=== PATIENT | male | born 1970 | race Caucasian/White ===

== ENCOUNTER 2021-11-01 12:08 | Emergency (ER) | payer OTHER, SELFPAY ==
[2021-11-01 12:09] VITALS: BP 138/101; PULSE 83; RESP 14; TEMP 36.6; O2SAT 98; BMI 27.1
--- NOTE | 2021-11-01 12:24 | EKG12_ITS ---
Test Reason : CP Blood Pressure : / mmHG Vent. Rate : 074 BPM Atrial Rate : 074 BPM P-R Int : 162 ms QRS Dur : 102 ms QT Int : 400 ms P-R-T Axes : 046 021 040 degrees QTc Int : 444 ms Sinus rhythm with occasional Premature ventricular complexes Otherwise normal ECG Confirmed by PHIL MARTINEZ, BEE ([id number]), news editor MAYCOL CARTAGENA ([id number]) on 11/06/2021 11:07:14 AM Referred By: Rainer Confirmed By:NATO VILLARREAL MD
--- NOTE | 2021-11-01 12:25 | RAD_ITS ---
STUDY: X-RAY CHEST REASON FOR EXAM: Male, 51 years old. Chest pain TECHNIQUE: Single AP portable view of the chest. COMPARISON: None. FINDINGS: EKG electrodes are seen. Hyperinflation. Calcified granulomas. No focal infiltrate is seen. There is no demonstrated pleural abnormality. Normal size heart. Normal mediastinum and marjorie. Normal visualized pulmonary arteries. Normal visualized aortic arch and descending thoracic aorta. Normal visualized thoracic spine. Normal visualized ribs, clavicles, and shoulders. There is no demonstrated abnormality of the visualized soft tissue structures of the upper abdomen. RAD/Chest 1 View (Portable) IMPRESSION: Hyperinflation. The lungs are clear. Electronically Signed: Keith Cortez MD at 12:48 EDT ,
--- NOTE | 2021-11-01 12:25 | ED.VIS.CHEST ---
HPI History of Present Illness Chief Complaint: Chest Pain Informant: patient Onset/Context/Timing Onset: - (Saturday, October 25, Saturday, October 30, Saturday, October 31 and today) Activity at onset: sudden, activity on onset and rest Timing: Intermittent Quality: Positive for Pressure Location: Left Chest Current Severity: 8/10 Maximum Severity: 10/10 Worsened By: Exertion; Not Worsened By Movement of Arm, Movement of Torso, Eating, Palpation, Breathing or Coughing Relieved By: Nothing (Today pain is been constant since onset 0900) and NTG (Yesterday seen at [facility] and relief after second nitro. Patient left prior to stress test) Associated Symptoms: Positive for Nausea, Diaphoresis and Dyspnea; Negative for Vomiting, Cough, Fever, Lightheadedness, Acid Reflux or Palpitations Narrative Narrative: October 25 left-sided chest pain described as pressure withsymptoms per 10 minutes. Saturday he had episode with activity that was associated with nausea, shortness of breath and diaphoresis. Lasted approximate 1 hour. He had an episode yesterday moving propane tanks and going up steps that lasted 1 hour with radiation to left side of his jaw with diaphoresis, shortness of breath and nausea. Today pain started at 0900 and has been persistent since. There is no radiation. He did report slight nausea and shortness of breath. He denied diaphoresis. Yesterday he was seen in [facility]. He reports relief after second nitro. He left prior to stress test. He is a smoker 1 pack/day since age 19, 31 years. No family history of cardiac disease at young age. Prior Similar Symptoms: Yes Recent Illness/Hospitalization: Yes CVD Risk Factors: Positive for Smoking; Negative for Hypertension, Diabetes, Hypercholesterolemia or Family History 1' </=55 PE Risk Factors: Negative for Recent Travel/Surgery, Recent Immobilization, Prior DVT or PE, Cancer or OCP + Smoking + >/=35 TAD Risk Factors: Negative for Marfan's Syndrome, Hypertension or Family History [facility] Medical History Chest pain Smoking Home Medications omeprazole 40 mg capsule,delayed release 40 mg PO DAILY #30 caps 11/01/21 [Rx Last Taken Unknown] Allergy/AdvReac Type Severity Reaction Status Date / Time No Known Allergies Allergy Verified 11/01/21 12:11 Social History (Updated 11/01/21 @ 13:[address] Arnie Spear MD) household members: significant other Smoking Status: Current every day smoker tobacco type: cigarettes substance use type: does not use ROS ROS ED Constitutional Constitutional ED: Denies chills, fever(s), subjective, sweats or weight loss Eyes Eyes: Denies blurry vision, change in vision or diplopia ENT ENT ED: Denies ear pain, rhinorrhea or sore throat Cardiovascular Cardiovascular: Reports as per HPI; Denies orthopnea or paroxysmal nocturnal dyspnea Respiratory/Chest Respiratory/Chest: Reports cough, dyspnea and dyspnea on exertion; Denies orthopnea, paroxysmal nocturnal dyspnea or sputum Gastrointestinal Gastrointestinal: Denies abdominal pain, constipation, diarrhea, melena, nausea or vomiting Genitourinary Genitourinary ED: Denies dysuria, hematuria or urinary frequency Musculoskeletal Musculoskeletal: Reports neck pain; Denies arthralgias, back pain or myalgias Integumentary Denies abscess, Abrasions or rash Neurologic Neurologic: Denies headache(s) or paresthesias Psychiatric Psychiatric: Denies anxiety or depression Endocrine Endocrinology: Denies cold intolerance, heat intolerance or polydipsia Hematologic/Lymphatic Hematologic/Lymphatic: Denies easy bleeding or easy bruising EXAM Physical Exam Const Vital Signs: 11/01/21 12:09 11/01/21 12:21 11/01/21 12:33 Temperature 97.8 F Temperature Source Temporal Pulse Rate 83 69 Respiratory Rate 14 Respiratory Effort Normal Non-Labored Blood Pressure 138/101 H 144/82 H Blood Pressure Mean 113 Pulse Ox 98 Oxygen Delivery Method 11/01/21 12:36 11/01/21 12:38 11/01/21 12:43 Temperature Temperature Source Pulse Rate 79 81 80 Respiratory Rate 18 Respiratory Effort Blood Pressure 121/81 H 121/81 H 125/85 H Blood Pressure Mean 94 Pulse Ox 98 Oxygen Delivery Method Room Air Positive well nourished, well developed and obese General Appearance ED: well developed and NAD; Negative for pallor Nutritional Appearance: obese HEENT Reports moist mucous membranes HEENT Narrative: Ears normal. Nares patent. Uvula midline. There is no erythema or exudate. normocephalic and atraumatic Eyes PERRL and EOMs intact bilaterally General Eye ED: Negative for pale conjunctiva or scleral icterus Neck no lymphadenopathy, supple and no JVD Chest Wall inspection of chest normal and palpation of chest normal Resp Effort and Inspection: respiratory distress and pain with movement Cardio regular rate, regular rhythm, S1 normal heart sound, S2 normal heart sound and no murmurs GI normal to inspection, nondistended, normoactive bowel sounds, soft to palpation, non-tender, non-distended and no masses; Negative for hepatosplenomegaly Back/Spine no CVA tenderness Extremity normal to inspection Extremity Narrative: There is no asymmetry, swelling, discoloration, leg vein distention, palpable cords or tenderness along the distribution of the deep venous system. Neuro oriented x3, CN's II-XII intact bilaterally and no sensory deficits noted Sensorium / Orientation: awake Motor Exam: strength 5/5 throughout Psych mental status grossly normal Skin no rashes or lesions noted and no wounds General Skin Exam: Negative for jaundice or pallor MDM MDM MDM Narrative Medical decision making narrative: Patient presents with chest discomfort need to rule out cardiac versus noncardiac etiology. EKG, chest x-ray and appropriate labs were ordered. Lab Data Attestation: I reviewed the patient's lab results. Lab results narrative: CBC and H&H are unremarkable. Basic metabolic panel is normal. First troponin is normal and is 4. 2-hour troponin is 4 with a delta of 0. Since both levels are less than 8 with a delta less than 7 negative predictive value is 100%. Therefore will discharge to home and outpatient follow-up with GI. Labs: Laboratory Results - last 24 hr 11/01/21 11/01/21 11/01/21 12:28 12:28 14:40 WBC 8.4 RBC 4.60 Hgb 15.5 Hct 44.8 MCV 97.4 H MCH 33.7 H MCHC 34.6 RDW Std Deviation 42.8 RDW Coeff of Roxana 11.9 Plt Count 227 MPV 8.7 Immature Gran % (Auto) 0.400 Neut % (Auto) 68.5 Lymph % (Auto) 23.6 [place] % (Auto) 6.4 Eos % (Auto) 0.5 Baso % (Auto) 0.6 Absolute Neuts (auto) 5.8 Absolute Lymphs (auto) 1.99 Nucleated RBC % 0 Sodium 137 Potassium 3.8 Chloride 104 Carbon Dioxide 30.0 Anion Gap 3 L BUN 17 Creatinine 1.08 Estim Creat Clear Calc 87.82 Est GFR (MDRD) Af Amer 92 Est GFR (MDRD) Non-Af 76 BUN/Creatinine Ratio 15.7 Glucose 93 Calcium 9.2 Troponin I High Sens 4 4 Radiography Chest X-Ray - ED: 1 View and Read by ED Physician (Single view portable chest x-ray was independently interpreted by me at 1238 as negative for acute process. There is slight hyperaeration. There is no infiltrate or effusion noted. There is no cephalization. Cardiac silhouette and size normal. Perihilar regions unremarkable. Osseous structures) Diagnostic Testing: Clinical Impression(s) from Imaging Studies Chest X-Ray 11/01/21 12:25 IMPRESSION: Hyperinflation. The lungs are clear. Electronically Signed: Keith Cortez MD at 12:48 EDT , EKG Initial EKG: Attestation: I personally reviewed and interpreted this EKG as follows: Interpretation: Sinus Rhythm (Ventricular rate is 74. [place] intervals 160 ms. QS duration 102 ms. QT duration 400 ms. [place] is normal. There are 2 premature ventricular beats noted. Otherwise the EKG is normal.) Discharge Plan Triage Chief Complaint: Chest Pain ED Provider: Arnie Spear Dx/Rx/DC Orders Clinical Impression: Chest pain of unknown etiology, Tobacco use Prescriptions: New omeprazole 40 mg capsule,delayed release(DR/EC) 40 mg PO DAILY Qty: 30 0RF Primary Care Provider: Care Physician,No Primary Referrals: Abdirahman,Talha, [Med Staff - Active Staff] - 1-2 Weeks Care Physician,No Primary [Primary Care Provider] - Disposition Disposition: Home, Self Care
[2021-11-01] MEDS: Aspirin 81 MG TAB.CHEW 324 MG PO (12:28)
[2021-11-01] MEDS: 0.9% Normal Saline 1,000 ML 150 ML IV (12:32)
[2021-11-01 12:33] VITALS: BP 144/82; PULSE 69
[2021-11-01] MEDS: Nitroglycerin SL (ED/IMG/CATH) 0.4 MG TABLET SL ×3 (12:33→12:43)
[2021-11-01 12:36] VITALS: BP 121/81; PULSE 79; RESP 18; O2SAT 98
[2021-11-01 12:36] LABS: Absolute Lymphocyte Count 1.99 X10^3/uL (0.83-4.51); Absolute Neutrophil Count 5.8 X10^3/uL (2.0-7.7); Basophil# 0.05 X10^3/uL; Basophil% 0.6 % (0-1); Eosinophil# 0.04 X10^3/uL; Eosinophils% 0.5 % (0-5); Hematocrit 44.8 % (40-54); Hemoglobin 15.5 g/dL (13.0-16.5); Lymphocyte # 1.99 X10^3/ul (0.83-4.51); Lymphocyte % 23.6 % (19-41); Mean Corp Hgb Conc 34.6 g/dL (32-36); Mean Corpuscular Hgb 33.7 pg (27.0-32.0); Mean Corpuscular Volume 97.4 fL (80-94); Mean Platelet Vol. 8.7 fl (6.2-12.0); Monocyte# 0.54 X10^3/uL; Monocyte% 6.4 % (0-10); NRBC Flagged by Analyzer 0 % (0-5); Neutrophil # 5.77 X10^3/uL (2.7-7.7); Neutrophil % 68.5 % (47-70); Platelet Count 227 K/mm3 (150-450); RBC Distribution Width CV 11.9 % (11.6-14.6); RBC Distribution Width SD 42.8 fl (35.1-43.9); White Blood Count 8.4 K/mm3 (4.4-11.0)
[2021-11-01 12:38] VITALS: BP 121/81; PULSE 81
[2021-11-01 12:43] VITALS: BP 125/85; PULSE 80
[2021-11-01 12:52] LABS: Anion Gap 3 (5-15); BUN 17 mg/dL (7-18); BUN/Creat Ratio 15.7 RATIO (10-20); Calcium,Total 9.2 mg/dL (8.5-10.1); Chloride 104 mmol/L (98-107); Creatinine, Serum 1.08 mg/dL (0.70-1.30); EST Glomerular Filtration Rate 76 mL/min (>60); Est Glom Filt Rate - Afr Amer 92 mL/min (>60); Estimated Creatinine Clearance 87.82 ml/min; Glucose 93 mg/dL (74-106); Potassium 3.8 mmol/L (3.5-5.1); Sodium Level 137 mmol/L (136-145); Troponin-I HS (w/2H Reflex) 4 pg/mL (3.0-78.0)
[2021-11-01 14:33] LABS: Reflex Troponin-HS? (from REC) Y
[2021-11-01 15:02] LABS: Troponin-I HS 4 pg/mL (3.0-78.0)
[2021-11-01 15:24] VITALS: BP 126/74; PULSE 59; RESP 18; O2SAT 96
== END 2021-11-01 15:25 | disposition home or self-care (01) ==
PROVIDERS: Emergency Provider Emergency Medicine; Visit Provider Emergency Medicine
DX: R07.9 Chest pain, unspecified (principal); E66.9 Obesity, unspecified; F17.210 Nicotine dependence, cigarettes, uncomplicated
CPT/HCPCS: 71045; 80048; 84484; 85025; 93005; 96360; 96361; 99284; J7030

== ENCOUNTER 2022-02-20 13:23 | Emergency (ER) | payer OTHER, SELFPAY ==
[2022-02-20 13:24] VITALS: BP 132/80; PULSE 92; RESP 15; TEMP 36.2; O2SAT 100; BMI 28.8
--- NOTE | 2022-02-20 14:54 | EDS_ITS ---
HPI History of Present Illness Chief Complaint: Back Narrative Narrative: Patient with past medical history of chronic back pain, has not had an exacerbation in 13 years presents with left-sided leg pain and numbness that he has had over the last few days. He denies any injury. No back pain concurrently. No fevers or chills. He denies saddle anesthesia or loss of bowel or bladder. He states that the pain radiates from his left buttocks down his leg to the top of his foot. At times it sharp, stabbing pain, other times he feels numbness. At times it is better when he stands rather than sits. Although he has had problems with his back and they wanted him to have shots he refused them. He is not having back pain currently, but more pain in his buttocks radiating downward. Its only on the left side. PFSH PFS Medical History Back pain Chest pain Smoking Home Medications omeprazole 40 mg capsule,delayed release 40 mg PO DAILY #30 caps 11/01/21 [Rx L ast Taken Unknown] cyclobenzaprine 10 mg tablet 10 mg PO TID PRN muscle spasm #20 tabs 02/20/22 [Rx Last Taken Unknown] naproxen 500 mg tablet 500 mg PO BID PRN #20 tabs 02/20/22 [Rx Last Taken Unknow n] Allergy/AdvReac Type Severity Reaction Status Date / Time No Known Allergies Allergy Verified 02/20/22 13:24 Social History household members: significant other Smoking Status: Current every day smoker tobacco type: cigarettes substance use type: does not use ROS ROS ED ROS Narrative Constitutional: No fever, no chills. HEENT: No sore throat. No neck pain. No loss of vision. No rhinorrhea. Cardiovascular: No chest pain. No palpitations. No pedal edema. Respiratory: No cough, no shortness of breath. Abdominal: No abdominal pain. No nausea. No vomiting. Genitourinary: No dysuria. No hematuria. Musculoskeletal: No myalgias. Left buttocks pain. Pain radiating around left hip and down to top of left foot. Neurologic: No headaches. No dizziness. No lightheadedness. No loss of bowel or bladder. No saddle anesthesia. Skin: No rash. No change in color. Psychiatric: No depression. No anxiety. EXAM Physical Exam Narrative Exam Narrative: Afebrile. Vital signs noted. HEENT: Normocephalic. Atraumatic. PERRL, EOMI. Neck soft and supple. No point tenderness or step off. Cardiovascular: Regular rate and rhythm. No murmurs, rubs, or gallops appreciated. Respiratory: No tachypnea. Lungs clear to auscultation bilaterally. Gastrointestinal: Abdomen soft, nontender, with normoactive bowel sounds. No rebound or guarding. Neurological: Awake. Alert. Nonfocal, nonlateralizing. Skin: No rash. Normal color. No pallor. Musculoskeletal: No pedal edema. Full range of motion extremities. Mild tenderness in left sciatic notch. Neurovascular intact bilateral lower extremities. DTRs equal and symmetric. Straight leg raising negative bilaterally. Const Vital Signs: 02/20/22 13:24 Temperature 97.2 F L Temperature Source Temporal Pulse Rate 92 Respiratory Rate 15 Blood Pressure 132/80 H Blood Pressure Mean 97 Pulse Ox 100 Oxygen Delivery Method Room Air MDM MDM MDM Narrative Medical decision making narrative: I do not feel x-rays of his back are indicated. A left-sided sciatica given the tenderness in the sciatic notch. He was referred to a primary care physician. He also states he used to see Dr. Rodriguez with orthopedics. I will write him prescriptions for Flexeril and for naproxen, although he states that he does not take pills. He was also told he may need physical therapy. He was given an intramuscular injection of Toradol here in the emergency department. I do feel he can be discharged safely home with follow-up to her primary care physician regarding his left-sided sciatica. Disposition is discharged home in stable condition. Discharge Plan Triage Chief Complaint: Back ED Provider: Gibran Louise Dx/Rx/DC Orders Clinical Impression: Sciatica of left side, Left lumbar radiculopathy Instructions: ED Sciatica Prescriptions: New cyclobenzaprine 10 mg tablet 10 mg PO TID PRN (Reason: muscle spasm) Qty: 20 0RF naproxen 500 mg tablet 500 mg PO BID PRN Qty: 20 0RF No Action omeprazole 40 mg capsule,delayed release(DR/EC) 40 mg PO DAILY Qty: 30 0RF Primary Care Provider: Care Physician,No Primary Referrals: Samantha Saleem DO [Med Staff - Active Staff] - As soon as possible Care Physician,No Primary [Primary Care Provider] - Disposition Disposition: Home, Self Care
[2022-02-20] MEDS: Ketorolac 60 MG/2 ML Vial IM (15:07)
== END 2022-02-20 15:30 | disposition home or self-care (01) ==
LOC: ED 14:55
PROVIDERS: Emergency Provider Emergency Medicine; Visit Provider Emergency Medicine
DX: M54.32 Sciatica, left side (principal); M54.16 Radiculopathy, lumbar region; G89.29 Other chronic pain; F17.210 Nicotine dependence, cigarettes, uncomplicated; Z79.899 Other long term (current) drug therapy
CPT/HCPCS: 96372; 99282